=== PATIENT | male | born 1955 | race Caucasian/White ===

== ENCOUNTER 2017-07-24 06:17 | Emergency (ER) | payer BC ==
[2017-07-24] MEDS ORDERED: LIDOCAINE 1%/EPINEPHRINE INJ 20 ML VIAL INJ ONE (07:15)
[2017-07-24] MEDS ORDERED: LIDOCAINE 4%/TETRACAINE 0.5%/EPI 0.18% 5 ML TOPICAL SOLN TOP ONE (07:43)
--- NOTE | 2017-07-24 09:44 | ER Document Report ---
ED Extremity Problem, Lower - General Chief Complaint: Leg Injury Stated Complaint: LEG BLEEDING Time Seen by Provider: 07/24/17 07:02 Mode of Arrival: Ambulatory Information source: Patient Notes: Patient is a 62-year-old male who presents to the ER today for bleeding vein on his right lower leg that he "irritated" when he got out of the shower this morning. Patient states he has varicose veins and has had this happen before in the 1980s. He states he did have surgery to "strep that vein." He has not had any issues with his varicose veins bleeding since that time. Patient does take a baby aspirin a day. TRAVEL OUTSIDE OF THE [place] IN LAST 30 DAYS: No - Related Data Allergies/Adverse Reactions: No Known Allergies Allergy (Verified 07/24/17 08:15) Past Medical History - General Information source: Patient - Social History Smoking Status: Never Smoker Family History: Reviewed & Not Pertinent Patient has suicidal ideation: No Patient has homicidal ideation: No - Past Medical History Cardiac Medical History: Denies: Hx Heart Attack, Hx Hypertension Pulmonary Medical History: Denies: Hx Asthma Neurological Medical History: Denies: Hx Cerebrovascular Accident, Hx Seizures Endocrine Medical History: Reports: Hx Diabetes Mellitus Type 1 Renal/ Medical History: Denies: Hx Peritoneal Dialysis GI Medical History: Denies: Hx Hepatitis, Hx Hiatal Hernia, Hx Ulcer Infectious Medical History: Denies: Hx Hepatitis Past Surgical History: Reports: Hx Abdominal Surgery, Hx Appendectomy, Hx Orthopedic Surgery - knee and shoulder. Denies: Hx Open Heart Surgery, Hx Pacemaker - Immunizations Hx Diphtheria, Pertussis, Tetanus Vaccination: Yes Review of Systems - Review of Systems Constitutional: No symptoms reported EENT: No symptoms reported Cardiovascular: See HPI Respiratory: No symptoms reported Gastrointestinal: No symptoms reported Genitourinary: No symptoms reported Male Genitourinary: No symptoms reported Musculoskeletal: No symptoms reported Skin: No symptoms reported Hematologic/Lymphatic: See HPI Neurological/Psychological: No symptoms reported Physical Exam - Vital signs Vitals: Temp Pulse Resp BP Pulse Ox 97.8 F 74 18 136/71 H 98 07/24/17 06:28 07/24/17 06:28 07/24/17 06:28 07/24/17 06:28 07/24/17 06:28 - Notes Notes: PHYSICAL EXAMINATION: GENERAL: Well-appearing and in no acute distress. HEAD: Atraumatic, normocephalic. EYES: Pupils equal round and reactive to light, extraocular movements intact, sclera anicteric, conjunctiva are normal. NECK: Normal range of motion, supple without lymphadenopathy LUNGS: CTAB and equal. No wheezes rales or rhonchi. HEART: Regular rate and rhythm without murmurs EXTREMITIES: Normal range of motion, no pitting edema. No cyanosis. NEUROLOGICAL: Cranial nerves grossly intact. Normal sensory/motor exams. PSYCH: Normal mood, normal affect. SKIN: Warm, Dry, normal turgor, blood coming from right lower extremity varicose vein Course - Re-evaluation Re-evalutation: 07/24/17 09:49 Area where varicose venous bleeding was injected with 10 cc of lidocaine with epinephrine, covered topically with a gauze saturated and lidocaine with epinephrine and pressure dressing was placed for half an hour. Bleeding had stopped after that time. Quick clot was applied to be thorough and pressure dressing was again reapplied for patient to go home and wear for 24 hours. Patient was given information for vascular surgeon in [facility] and told to follow- up with him outpatient. - Vital Signs Vital signs: Temp Pulse Resp BP Pulse Ox 97.8 F 74 18 136/71 H 98 07/24/17 06:28 07/24/17 06:28 07/24/17 06:28 07/24/17 06:28 07/24/17 06:28 Procedures - Additional Procedures injection varicose vein Time performed: 08:10 Notes: 07/24/17 09:51 pt tolerated well, bleeding stopped Discharge - Discharge Clinical Impression: Bleeding from varicose vein Condition: Stable Disposition: HOME, SELF-CARE Additional Instructions: Return immediately for any new or worsening symptoms. Follow up with primary care provider, call tomorrow to make followup appointment. Forms: Return to Work Referrals: LILIBETH AYALA MD [ACTIVE STAFF] - Follow up as needed NANCY HUIZAR MD [Primary Care Provider] - Follow up as needed
[2017-07-24 09:59] VITALS: BP 130/74
== END 2017-07-24 09:59 | disposition home or self-care (01) ==
LOC: ER 06:17
DX: I83.891 Varicose veins of right lower extremity with other complications (principal); E10.9 Type 1 diabetes mellitus without complications; Z79.82 Long term (current) use of aspirin
CPT/HCPCS: 99283; 82962; 37799; J3490 ×2

== ENCOUNTER 2017-11-13 07:23 | Day surgery (SDC) | payer BC ==
[~2017-11-13 07:23] MED LIST: KETOROLAC TROMETHAMINE 0.45% 4 DROP/0.4 ML DROPERETTE OD PRN; TETRACAINE HCL 0.5% OPH SOLN 2 ML OD PRN
[2017-11-13] MEDS ORDERED: LIDOCAINE 1% INJ-PF (10 MG/ML) 30 ML SDV ONE (07:42)
[2017-11-13] MEDS ORDERED: CHONDR SU A NA/HYALUR INTRAOC KIT (SURGICARE) ONE (07:42)
[2017-11-13] MEDS ORDERED: EPINEPHRINE INJ/PF 1 MG/1 ML AMPULE ONE (07:42)
[2017-11-13] MEDS ORDERED: MIDAZOLAM 2 MG/2 ML INJ ONE (07:55)
[2017-11-13] MEDS: TROPICAMIDE 1% OPH SOLN 3 ML OD PRN ×3 (08:13→08:31)
[2017-11-13] MEDS: CYCLOPENTOLATE 0.2%/PHENYLEPHRINE 1% OPH SOLN 2 ML OD PRN ×3 (08:14→08:31)
[2017-11-13] MEDS: BESIFLOXACIN HCL 0.6% OPH SUSP 5 ML BOTTLE OD PRN ×2 (08:14→08:32)
--- NOTE | 2017-11-13 20:06 | [facility] OPERATIVE REPORT E ---
[facility] Operative Report NAME: RICHARD SMALL AGE: 62Y DATE OF SURGERY: 11/13/2017 ROOM: PREOPERATIVE DIAGNOSIS: CATARACT, RIGHT EYE. POSTOPERATIVE DIAGNOSIS: CATARACT, RIGHT EYE. OPERATION: Cataract extraction with insertion of an IOL of the right eye. SURGEON: ROMAN DONOHUE M.D. ANESTHESIA: Topical. PROCEDURE: After obtaining appropriate consent, the patient's right eye was prepped and draped in sterile fashion as well as the surgeon in a sterile manner and cataract surgery was started. First a paracentesis blade was used to make a side-port incision. Viscoelastic was used to inflate the anterior chamber. Next a 2.4 mm incision was made with a 2.4 mm blade, clear corneal temporally. A continuous capsulorrhexis was made using a cystotome and Utrata forceps. Following this hydrodissection was carried out to make the lens fully loose and mobile and it was rotated 90 degrees. Following this, a [id number]-kjd-bbxobdn technique was used to phacoemulsify the lens with a CDE of 7.43. The remaining cortex was removed with irrigation/aspiration. Provisc was instilled into the capsular bag to inflate the bag. A SN60WF, 21.0 diopter lens was placed. The remaining viscoelastic material was removed with irrigation/aspiration. Following this, the incision was found to be watertight. Besivance was instilled into the eye and a protective shield was placed over the eye. The patient returned to the postoperative recovery in stable condition. DICTATING PHYSICIAN: ROMAN DONOHUE M.D. [id number] PHY#: [id number] ID: [id number] JOB#: [id number] ACCT: [id number] cc:ROMAN DONOHUE M.D. >
--- NOTE | 2017-11-13 20:11 | [facility] DISCHARGE SUMMARY E ---
[facility] Discharge Summary NAME: RICHARD SMALL AGE: 62Y ADMITTED: 11/13/2017 DISCHARGED: HOSPITAL COURSE: This is a 62-year-old patient who underwent cataract extraction of the right eye. DIAGNOSIS: Cataract, right eye. He underwent surgery because he was having trouble having glare from headlights at night while driving. DISCHARGE INSTRUCTIONS: He is to be on a regular diet. No bending at his waist, no heavy lifting. He is to use his Besivance, Ilevro, and Durezol at 3:00 p.m. and 8:00 p.m., and sleep with a rigid shield. I will see his for his 1 day postoperative tomorrow. DICTATING PHYSICIAN: ROMAN DONOHUE M.D. [id number] PHY#: [id number] ID: [id number] JOB#: [id number] ACCT: [id number] cc:ROMAN DONOHUE M.D. >
== END 2017-11-13 09:42 | disposition home or self-care (01) ==
LOC: SC 07:23
PROVIDERS: ATTEND Internal Medicine
DX: H25.811 Combined forms of age-related cataract, right eye (principal); E11.9 Type 2 diabetes mellitus without complications; H04.123 Dry eye syndrome of bilateral lacrimal glands; H43.812 Vitreous degeneration, left eye; Z96.1 Presence of intraocular lens; H34.8310 Tributary (branch) retinal vein occlusion, right eye, with macular edema; M19.90 Unspecified osteoarthritis, unspecified site; G47.30 Sleep apnea, unspecified; Z79.899 Other long term (current) drug therapy
CPT/HCPCS: 66984; 82962; V2632; J2250; J3490 ×2; J0171; 142